=== PATIENT | male | born 1985 | race Caucasian/White ===

== ENCOUNTER 2023-03-16 12:12 | Emergency (ER) | payer OTHER ==
[~2023-03-16] VITALS: Ht 165.1 cm; Wt 59.0 kg
[2023-03-16 12:35] VITALS: BP 136/84; PULSE 84; RESP 18; TEMP 97; O2SAT 98
--- NOTE | 2023-03-16 13:40 | NUR ---
finger splint applied to L finger. + cms
[2023-03-16] MEDS ORDERED: IBUP-1842 PO (13:51)
== END 2023-03-16 14:03 | disposition home or self-care (01) ==
LOC: MED 12:12
DX: S63.691A Other sprain of left index finger, initial encounter (principal); W22.8XXA Striking against or struck by other objects, initial encounter; Y93.89 Activity, other specified; Y92.89 Other specified places as the place of occurrence of the external cause; Y99.8 Other external cause status
CPT/HCPCS: 73140; 99283